=== PATIENT | male | born 1970 | race African-American/Black ===

== ENCOUNTER 2016-12-17 08:56 | Outpatient (CLI) | payer BC, OTHER ==
[2016-12-17 09:58] LABS: Hemoglobin A1c 6.5 % (4.0-6.0)
[2016-12-17 10:26] LABS: ALT (SGPT) 23 U/L (8-55); AST (SGOT) 18 U/L (5-34); Albumin 4.1 g/dL (3.5-5.0); Alkaline Phosphatase 59 U/L (40-150); Anion Gap 14 mmol/L (10-20); BUN (Urea Nitrogen) 15 mg/dL (8.9-20.6); Bilirubin, Direct 0.1 mg/dL (0.1-0.3); Bilirubin, Total 0.4 mg/dL (0.2-1.2); Calc. Creatinine Clearance 0 mL/min (70-130); Carbon Dioxide 22 mmol/L (22-29); Chloride 105 mmol/L (98-107); Cholesterol 218 mg/dl (< 200 Desired); Estimated GFR-MDRD Greater than 90; Globulin 3.1 g/dL (2.4-3.5); Glucose 169 mg/dL (70-105); HDL Cholesterol 54 mg/dL (>60 Neg Risk); LDL Cholesterol, Calculated 145 mg/dL; Protein, Total 7.2 g/dL (6.0-8.3); Sodium 137 mmol/L (136-145); Triglycerides 97 mg/dL (Less than 150)
[2016-12-17 17:50] LABS: Creatinine, Urine 146.26 mg/dL (63-166); Microalbumin Urine Less than 1.0 mg/dL (0.5-50.0); Microalbumin/Creat Ratio 6.8 mg/g (Less than 30)
== END 2016-12-17 08:57 ==
LOC: MADLAB 08:56 → MADLABBHPM 08:57
PROVIDERS: ATTEND Family Medicine
DX: E78.5 Hyperlipidemia, unspecified (principal); E11.9 Type 2 diabetes mellitus without complications
CPT/HCPCS: 36415; 80053; 80061; 82043; 82248; 83036; 84443